=== PATIENT | male | born 1970 | race Caucasian/White ===

== ENCOUNTER 2021-12-26 23:33 | Inpatient (IN) | payer MEDICAID, SELFPAY ==
[2021-12-26 23:33] VITALS: BMI 29.2
[2021-12-27 06:00] VITALS: RESP 17
[2021-12-27] MEDS: folic acid 1 mg Tablet PO (08:34)
[2021-12-27] MEDS: pantoprazole DR 40 mg Tablet PO (08:34)
[2021-12-27] MEDS: thiamine 100 mg Tablet PO (08:34)
[2021-12-27] MEDS: multivitamin therapeutic Tablet 1 TAB PO (08:34)
[2021-12-27] MEDS: sucralfate 1 gm Tablet PO ×4 (08:34→21:09)
[2021-12-27] MEDS: calcium carbonate 500 mg Chew Tablet 1000 MG PO (10:03)
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
--- NOTE | 2021-12-27 10:05 | PC.NURSE ---
PRN TUMS 1,000 MG GIVEN PO PER PT C/O INDIGESTION
[2021-12-27] MEDS: duloxetine 30 mg Capsule PO (11:03)
[2021-12-27] MEDS: hyDROXYzine 25 mg Capsule 50 MG PO (12:24)
--- NOTE | 2021-12-27 12:25 | PC.NURSE ---
PRN VISTARIL 50 MG GIVEN PO PER PT C/O STATED ANXIETY
[2021-12-27 14:00] VITALS: BP 122/75; PULSE 94; RESP 20; TEMP 36.8; O2SAT 93
[2021-12-27 20:40] VITALS: BP 110/68; PULSE 92; RESP 17; O2SAT 95
[2021-12-27] MEDS: trazodone 100 mg Tablet PO (21:09)
[2021-12-28 05:47] VITALS: BP 90/56; PULSE 85; RESP 16; TEMP 36.6; O2SAT 94
[2021-12-28] MEDS: sucralfate 1 gm Tablet PO ×4 (08:20→21:23)
[2021-12-28] MEDS: pantoprazole DR 40 mg Tablet PO (08:20)
[2021-12-28] MEDS: folic acid 1 mg Tablet PO (08:20)
[2021-12-28] MEDS: multivitamin therapeutic Tablet 1 TAB PO (08:20)
[2021-12-28] MEDS: duloxetine 30 mg Capsule PO (08:20)
[2021-12-28] MEDS: thiamine 100 mg Tablet PO (08:20)
[2021-12-28] MEDS: hyDROXYzine 25 mg Capsule 50 MG PO ×2 (08:22→14:17)
[2021-12-28] MEDS: nicotine 21 mg Patch 1 PATCH TRANSDERMA (08:22)
[2021-12-28] MEDS: OLANZapine 5 mg ODT PO (12:39)
[2021-12-28 14:00] VITALS: BP 138/94; PULSE 80; RESP 18; TEMP 36.6; O2SAT 94
--- NOTE | 2021-12-28 15:30 | W.PM.NPUPNS ---
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 The patient reported no side effects from his Cymbalta yesterday at 30 mg. He continued to report depressed mood and reported some feelings of hopelessness. He had endorsed improved sleep on trazodone. He did not endorse any active thoughts of hurting himself or others today. He was compliant and engaged on the milieu according to staff. He endorsed low energy and low motivation. He reported having significant issues with fatigue. He had required some Ativan as needed for alcohol withdrawal symptoms although patient reports feeling less shaky. Mental Status Exam MSE Comments: Jake is a casually dressed white male who was in a wheelchair during the whole interview. His gait was not tested he did appear to show evidence of psychomotor retardation. His speech was somewhat slow but normal rhythm and prosody. His mood reported as depressed. His affect was restrictedin range. His thought process was linear logical and goal-directed. His thought content showed evidence of suicidal thoughts with no active plan currently. there is no evidence of homicidal ideation. There was no evidence of delusional thinking. He denied any auditory or visual hallucinations. He was alert and oriented to person place time and situation. His attention span appeared fair. his insight was limited. his judgment was poor. his impulse control was poor as well. Vitals/I&O/Wt Last Vital Signs Temp 98 F 12/28/21 14:00 Pulse 80 12/28/21 14:00 Resp 18 12/28/21 14:00 BP 138/94 12/28/21 14:00 Pulse Ox 94 12/28/21 14:00 O2 Del Method 12/28/21 14:00 Weight last 48 hrs Weight 95.254 kg A&P Assessment and plan (1) Major depressive disorder, recurrent: Status: Acute (2) Alcohol dependence: Status: Acute (3) PTSD (post-traumatic stress disorder): Status: Acute Plan This is a 51-year-old male with a history of alcohol dependence with previous inpatient rehabilitation attempts recently taken off of his psychotropic medications to target depression and anxiety due to the [facility] program that demands that no medications be given to these patients. He has reported a significant decline in mood with a reemergence of PTSD symptoms as well. 1.? We will obtain collateral information including patient records 2.? Encourage individual, group and milieu therapy 3.? Continue q-15 minute check for safety 4.? Recommend sober living treatment at the highest level of care to which the patient is willing to commit. 5. Begin Cymbalta 30mg daily to target phantom limb pain and treatment of depressed mood and anxiety. Add Seroquel 50mg at night for adjunctive treatment of depression. Involuntary Hold Information 96 Hour Hold: 96 Hour Involuntary Admission: No Attestations NPU Medical Necessity Statement*: Inpatient hospitalization is medically necessary and the clinically appropriate intervention at this time. We will continue to monitor medications and make changes as indicated. Patient will be in the hospital for over two midnights. Likely length of stay is three to five days. 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
[2021-12-28 20:57] VITALS: BP 106/70; PULSE 82; RESP 20; TEMP 36.7; O2SAT 96
[2021-12-28] MEDS: quetiapine 25 mg Tablet 50 MG PO (21:23)
[2021-12-28] MEDS: trazodone 100 mg Tablet PO (21:23)
[2021-12-29 06:00] VITALS: BP 97/67; PULSE 80; RESP 16; TEMP 36.6; O2SAT 92
[2021-12-29] MEDS: pantoprazole DR 40 mg Tablet PO (08:06)
[2021-12-29] MEDS: nicotine 21 mg Patch 1 PATCH TRANSDERMA (08:06)
[2021-12-29] MEDS: multivitamin therapeutic Tablet 1 TAB PO (08:06)
[2021-12-29] MEDS: thiamine 100 mg Tablet PO (08:06)
[2021-12-29] MEDS: folic acid 1 mg Tablet PO (08:06)
[2021-12-29] MEDS: ondansetron 4 MG Tablet PO (08:06)
[2021-12-29] MEDS: duloxetine 60 mg Capsule PO (08:07)
[2021-12-29] MEDS: sucralfate 1 gm Tablet PO ×4 (08:07→19:59)
[2021-12-29] MEDS: hyDROXYzine 25 mg Capsule 50 MG PO ×2 (08:11→17:39)
[2021-12-29] MEDS: OLANZapine 5 mg ODT PO (11:43)
--- NOTE | 2021-12-29 11:45 | PC.NURSE ---
Pt experiencing anxiety, administered a 5mg Zyprexa Zydis.
[2021-12-29 14:00] VITALS: BP 114/78; PULSE 89; RESP 18; TEMP 36.6; O2SAT 92
--- NOTE | 2021-12-29 14:28 | P.NPUPN_ITS ---
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 Jake reports depressed mood and feelings of hopelessness still. He reported no side effects from his medications. He had not reported any withdrawal from alcohol symptoms today. Staff notes the patient has continued to isolate himself. He continues to report feelings of sadness. He endorsed passive suicidal thoughts with no active plan at this time. He denied any feelings of worthlessness. He had reported continued problems with lack of energy and motivation with anhedonia also reported. He reports that he had no cravings for alcohol at this time. He did report that he might wish to receive substance abuse treatment if possible. Mental Status Exam MSE Comments: Jake is a casually dressed white male who was in his bed during the interview. His gait was not tested. There was evidence of psychomotor retardation. His speech was somewhat slow but normal rhythm and prosody. His mood reported as depressed. His affect was restricted in range and mood congruent. His thought process was linear logical and goal-directed. His thought content showed evidence of suicidal thoughts with no active plan currently. there is no evidence of homicidal ideation. There was no evidence of delusional thinking. He denied any auditory or visual hallucinations. He was alert and oriented to person place time and situation. His attention span appeared fair. his insight was limited. his judgment was poor. his impulse control was poor as well. Vitals/I&O/Wt Last Vital Signs Temp 98 F 12/29/21 14:00 Pulse 89 12/29/21 14:00 Resp 18 12/29/21 14:00 BP 114/78 12/29/21 14:00 Pulse Ox 92 12/29/21 14:00 O2 Del Method 12/29/21 14:00 Weight last 48 hrs Weight 95.254 kg A&P Assessment and plan (1) Major depressive disorder, recurrent: Status: Acute (2) Alcohol dependence: Status: Acute (3) PTSD (post-traumatic stress disorder): Status: Acute Plan This is a 51-year-old male with a history of alcohol dependence with previous inpatient rehabilitation attempts recently taken off of his psychotropic medications to target depression and anxiety due to the [facility] program that demands that no medications be given to these patients. He has reported a significant decline in mood with a reemergence of PTSD symptoms as well. 1.? We will obtain collateral information including patient records 2.? Encourage individual, group and milieu therapy 3.? Continue q-15 minute check for safety 4.? Recommend sober living treatment at the highest level of care to which the patient is willing to commit. 5. Increase Cymbalta 60mg daily to target phantom limb pain and treatment of depressed mood and anxiety. Increase Seroquel to 100mg at night for adjunctive treatment of depression. Involuntary Hold Information 96 Hour Hold: 96 Hour Involuntary Admission: No Attestations NPU Medical Necessity Statement*: Inpatient hospitalization is medically necessary and the clinically appropriate intervention at this time. We will continue to monitor medications and make changes as indicated. Patient will be in the hospital for over two midnights. Likely length of stay is three to five days. Coding Level of Care Code Established Pt Acute Show Card Writer for Nan Weaver Patient Type Established History Problem Focused Exam Problem Focused Medical Decision Making Straight Forward Diagnoses Major depressive disorder, recurrent F33.9 Alcohol dependence F10.20 PTSD (post-traumatic stress disorder) F43.10
[2021-12-29] MEDS: trazodone 50 mg Tablet PO (19:59)
[2021-12-29] MEDS: quetiapine 100 mg Tablet PO (19:59)
[2021-12-29 21:27] VITALS: BP 137/83; PULSE 88; RESP 18; TEMP 37.4; O2SAT 93
[2021-12-30 06:00] VITALS: BP 113/78; PULSE 84; RESP 17; TEMP 36.7; O2SAT 93
[2021-12-30] MEDS: hyDROXYzine 25 mg Capsule 50 MG PO ×3 (06:58→20:02)
[2021-12-30] MEDS: pantoprazole DR 40 mg Tablet PO (06:58)
[2021-12-30] MEDS: multivitamin therapeutic Tablet 1 TAB PO (08:18)
[2021-12-30] MEDS: duloxetine 60 mg Capsule PO (08:18)
[2021-12-30] MEDS: sucralfate 1 gm Tablet PO ×4 (08:18→20:02)
[2021-12-30] MEDS: thiamine 100 mg Tablet PO (08:18)
[2021-12-30] MEDS: folic acid 1 mg Tablet PO (08:18)
[2021-12-30] MEDS: nicotine 21 mg Patch 1 PATCH TRANSDERMA (11:37)
[2021-12-30 14:00] VITALS: BP 122/85; PULSE 89; RESP 16; TEMP 37.2; O2SAT 92
--- NOTE | 2021-12-30 15:15 | W.PM.NPUPNS ---
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 Jake reports some improvement in mood. He reports that he wishes to move on and readdress his alcohol dependence. He had reported some improvement in sleep on his current medications. He denied any feelings of hopelessness or worthlessness. He reports that in the interim prior to returning to a rehabilitation facility he will live with his sister in [place]. He reported no side effects from this medication. He denied any cravings for alcohol today. He denied any withdrawal symptoms as well. Mental Status Exam MSE Comments: Jake is a casually dressed white male who was in his bed during the interview. His gait was not tested. There was evidence of psychomotor retardation. His speech was somewhat slow but normal rhythm and prosody. His mood described as depressed. His affect was restricted in range and mood congruent. His thought process was linear logical and goal-directed. His thought content showed no evidence of suicidal thoughts today with no active plan either. There is no evidence of homicidal ideation. There was no evidence of delusional thinking. He denied any auditory or visual hallucinations. He was alert and oriented to person place time and situation. His attention span appeared fair. his insight was limited. his judgment was poor. his impulse control was poor as well. Vitals/I&O/Wt Last Vital Signs Temp 98.9 F 12/30/21 14:00 Pulse 89 12/30/21 14:00 Resp 16 12/30/21 14:00 BP 122/85 12/30/21 14:00 Pulse Ox 92 12/30/21 14:00 O2 Del Method 12/30/21 14:00 Weight last 48 hrs Weight 95.254 kg A&P Assessment and plan (1) Major depressive disorder, recurrent: Status: Acute (2) Alcohol dependence: Status: Acute (3) PTSD (post-traumatic stress disorder): Status: Acute Plan This is a 51-year-old male with a history of alcohol dependence with previous inpatient rehabilitation attempts recently taken off of his psychotropic medications to target depression and anxiety due to the [facility] program that demands that no medications be given to these patients. He has reported a significant decline in mood with a reemergence of PTSD symptoms as well. 1.? We will obtain collateral information including patient records 2.? Encourage individual, group and milieu therapy 3.? Continue q-15 minute check for safety 4.? Recommend sober living treatment at the highest level of care to which the patient is willing to commit. 5. Continue Cymbalta 60mg daily to target phantom limb pain and treatment of depressed mood and anxiety. Continue Seroquel at 100mg at night for adjunctive treatment of depression. Involuntary Hold Information 96 Hour Hold: 96 Hour Involuntary Admission: No Attestations NPU Medical Necessity Statement*: Inpatient hospitalization is medically necessary and the clinically appropriate intervention at this time. We will continue to monitor medications and make changes as indicated. Patient's likely length of stay is 1-2 days. Coding Level of Care Code Established Pt Acute Sample Prep Technician for Nan Weaver Patient Type Established History Problem Focused Exam Problem Focused Medical Decision Making Straight Forward Diagnoses Major depressive disorder, recurrent F33.9 Alcohol dependence F10.20 PTSD (post-traumatic stress disorder) F43.10
--- NOTE | 2021-12-30 15:18 | PC.NURSE ---
PRN MED PT GIVEN 50MG VISTARIL FOR STATED ANXIETY, WILL CONTINUE TO MONITOR.
[2021-12-30 19:59] VITALS: BP 129/93; PULSE 68; RESP 16; TEMP 36.6; O2SAT 99
[2021-12-30] MEDS: quetiapine 100 mg Tablet 150 MG PO (20:02)
[2021-12-30 21:42] VITALS: BP 129/93; PULSE 68; RESP 16; TEMP 36.6; O2SAT 99
[2021-12-31 06:00] VITALS: BP 104/70; PULSE 61; RESP 18; TEMP 36.6; O2SAT 100
[2021-12-31] MEDS: folic acid 1 mg Tablet PO (08:36)
[2021-12-31] MEDS: multivitamin therapeutic Tablet 1 TAB PO (08:36)
[2021-12-31] MEDS: hyDROXYzine 25 mg Capsule 50 MG PO (08:36)
[2021-12-31] MEDS: thiamine 100 mg Tablet PO (08:37)
[2021-12-31] MEDS: duloxetine 60 mg Capsule PO (08:37)
[2021-12-31] MEDS: pantoprazole DR 40 mg Tablet PO (08:37)
[2021-12-31] MEDS: sucralfate 1 gm Tablet PO ×2 (08:37→12:50)
[2021-12-31 09:39] VITALS: BP 104/70; PULSE 61; RESP 18; TEMP 36.6; O2SAT 100
[2021-12-31] MEDS: nicotine 2 mg Gum BUCCAL (11:29)
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
[2021-12-31] MEDS: OLANZapine 5 mg ODT PO (12:50)
== END 2021-12-31 13:41 | disposition home or self-care (01) | DRG 885 ==
PROVIDERS: Admitting Provider Psychiatry & Neurology Psychiatry; Visit Provider Psychiatry & Neurology Psychiatry
DX: F33.9 Major depressive disorder, recurrent, unspecified (principal); R45.851 Suicidal ideations; F10.20 Alcohol dependence, uncomplicated; F43.10 Post-traumatic stress disorder, unspecified; F19.10 Other psychoactive substance abuse, uncomplicated; G54.6 Phantom limb syndrome with pain; K21.9 Gastro-esophageal reflux disease without esophagitis; Z81.8 Family history of other mental and behavioral disorders; Z91.49 Other personal history of psychological trauma, not elsewhere classified; Z91.51 Personal history of suicidal behavior; Z89.611 Acquired absence of right leg above knee; Z59.00 Homelessness unspecified; Z81.4 Family history of other substance abuse and dependence
CPT/HCPCS: 97150; 97165; Q0162